=== PATIENT | male | born 1955 | race Caucasian/White ===

== ENCOUNTER 2020-04-26 08:36 | Day surgery (SDC) | payer OTHER ==
[2020-04-19 10:57] VITALS: BMI 27.8
[2020-04-26] MEDS ORDERED: Fentanyl 100 MCG/2 ML VIAL ONE ×2 (09:16→10:09)
[2020-04-26] MEDS ORDERED: Vancomycin 1.5 GRAM/300 ML BAG ONE (09:25)
[2020-04-26] MEDS ORDERED: Midazolam HCl 2 mg/2 ml Vial ONE (10:09)
[2020-04-26] MEDS ORDERED: Zolpidem Tartrate 5 MG TAB PO PRN (10:46)
[2020-04-26] MEDS ORDERED: Promethazine HCl 25 MG/ML VIAL IM PRN (10:46)
[2020-04-26] MEDS ORDERED: HYDROcodone/Acetaminophen 10/325 mg Tablet PO PRN ×2 (10:46)
[2020-04-26] MEDS ORDERED: Ropivacaine 0.2% 550 ML 550 ML NERVE BLCK SCH (10:46)
[2020-04-26] MEDS ORDERED: traMADol HCl 50 MG TAB PO PRN ×2 (10:46)
[2020-04-26] MEDS ORDERED: Ondansetron PF 4 MG/2 ML Vial IVP PRN (10:46)
[2020-04-26] MEDS ORDERED: Acetaminophen 325 MG TAB PO PRN (10:46)
[2020-04-26] MEDS ORDERED: Fentanyl 100 MCG/2 ML VIAL IV PRN (10:47)
[2020-04-26] MEDS ORDERED: Ropivacaine 0.5% HCl/PF (150 MG/30 ML VIAL) ONE (11:20)
[2020-04-26] MEDS ORDERED: Dexamethasone 20 MG/5 ML VIAL ONE (11:20)
[2020-04-26] MEDS ORDERED: Lidocaine 1% PF 5 ML VIAL ONE (11:20)
[2020-04-26] MEDS ORDERED: PROPOFOL 200 MG/20 ML VIAL ONE (11:20)
[2020-04-26] MEDS ORDERED: EPHEDRINE 25 MG/5 ML SYRINGE ONE (11:20)
[2020-04-26] MEDS ORDERED: Rocuronium Bromide 10 MG/ML (10ML VIAL) ONE (11:20)
[2020-04-26] MEDS ORDERED: Ondansetron PF 4 MG/2 ML Vial ONE (11:20)
[2020-04-26] MEDS ORDERED: Ropivacaine 0.2% HCl/PF (40 MG/20 ML VIAL) ONE (11:20)
--- NOTE | 2020-04-26 16:56 | OP ---
DATE OF PROCEDURE: 04/26/2020 PREOPERATIVE DIAGNOSES: 1. Right shoulder impingement with rotator cuff tear, status post previous arthroscopic cuff repair done approximately 15 years ago. 2. 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 PROCEDURES PERFORMED: 1. Right open shoulder subacromial decompression 2. Right open rotator cuff repair. 3. Right open biceps tenodesis. MARGIN TRIMMER: Lowell Ellsworth PA-C ESTIMATED BLOOD LOSS: Approximately 50 mL. COMPLICATIONS: None. ANESTHESIA: The patient did have a general anesthetic as well as a preoperative block. IMPLANTS: A 7 x 23 BioComposite Bio-Tenodesis screw from the biceps tendon. We used one triple-loaded titanium rotator cuff anchor and two 4.75 mm BioComposite SwiveLock for rotator cuff repair. INDICATIONS: This is a 64-year-old male, who is returning with complaints of pain and weakness in the shoulder. He had a previous arthroscopic repair years ago and at this time, new MRI showed him to have significant retear of the tendon as well as some degenerative labral tearing leading to biceps instability. DESCRIPTION OF PROCEDURE: After all appropriate consent forms were explained and signed, he was taken to the operative room and at this time was given general anesthetic. Once the level of anesthesia was appropriate, he was placed in a modified beach-chair position with all bony prominences well padded. The right shoulder and upper extremity were then prepped and draped in standard surgical fashion. Bony anatomical landmarks were drawn out and a single incision was made going from the AC joint, lateral and distal down the anterior one-third of the acromion. Bovie was used to coagulate any brisk venous bleeding. Multiple windows were then made underlying the subcutaneous tissue. At this time, anterior deltoid was taken off the anterior acromion full thickness for later repair extending from the lateral edge of the acromion approximately 2 to 2.5 cm. A Donnell was placed and a saw was used to perform an anterior-inferior acromioplasty. A rasp was used to smooth off the undersurface of this. At this time, the bursa was removed and gave us visualization of our underlying rotator cuff. The defect was noted as a soft spot in between the good posterior rotator cuff and the anterior cuff in between was interpose some soft collagenous type scar tissue and this was removed in its entirety sharply with a blade. We did remove our previous placed stitches at this time. We then took our finger and free it up any adhesions circumferentially around the rotator cuff, both on the superior and inferior surface. Gave us nice mobility rotator cuff and the posterior cuff came easily forward to close our hole. At this time, we then turned our attention to cleaning off the soft tissue and roughening up our insertion point for the rotator cuff. We then turned our attention to the biceps tenodesis. The biceps occipital groove was opened up. Biceps tendon was tagged and cut off the superior labral insertion using a pair of scissors. We then stitched the biceps; removed the intra-articular portion of it and placed a guidewire, reamed and placed our BioComposite 7 x 23 Bio-Tenodesis screw in standard fashion. Sutures were tied over top of this, so the screw could not back out. We then ran a #1 Vicryl suture to close our rotator interval split that we used to gain access through the biceps insertion. Once the biceps was done, we went back to rotator cuff tear. Multiple interrupted #1 Ethibond sutures were used to close the apex of our tear. We then placed a triple-loaded titanium anchor at the interval between the articular cartilage and the bone and these 3 sets sutures were used to place one limb through the anterior leaflet and one limb through the posterior leaflet. These were then sequentially tied closing the repair. We then took half the sutures posterior and half the sutures anterior for a double-row repair by punching and then placing 4.75 mm SwiveLock. This gave us an excellent repair. We thoroughly irrigated and dried. We then placed multiple interrupted stitches through the deltoid and took these through the bone for a deltoid repair onto the acromion. These were then sequentially tied with the arm held up in adduction to remove any tension and then allow the arm to sit at its side without any problem. We then overran our split using a large Vicryl followed by 2-0 Vicryl and surgical haydee on the skin. Bulky sterile dressing was applied. At this time , the patient had an arm sling applied to his right upper extremity prior to moving on to the recovery room bed and to recovery room. All counts were correct at the end of the case and Mr. Ni did receive preoperative IV antibiotics. Job ID: [id number] [facility]
== END 2020-04-26 14:18 | disposition home or self-care (01) ==
LOC: SDC 08:36
PROVIDERS: ATTEND Orthopaedic Surgery
PROC: 3E0T3BZ Introduction of Anesthetic Agent into Peripheral Nerves and Plexi, Percutaneous Approach (ICD-10-PCS; principal; 2020-04-26)
PROC: 0LS30ZZ Reposition Right Upper Arm Tendon, Open Approach (ICD-10-PCS; principal; 2020-04-26)
PROC: 0RHJ04Z Insertion of Internal Fixation Device into Right Shoulder Joint, Open Approach (ICD-10-PCS; principal; 2020-04-26)
PROC: 0LQ10ZZ Repair Right Shoulder Tendon, Open Approach (ICD-10-PCS; principal; 2020-04-26)
PROC: 0RNJ0ZZ Release Right Shoulder Joint, Open Approach (ICD-10-PCS; principal; 2020-04-26)
DX: M75.101 Unspecified rotator cuff tear or rupture of right shoulder, not specified as traumatic (principal); M25.811 Other specified joint disorders, right shoulder; S43.431A Superior glenoid labrum lesion of right shoulder, initial encounter; S46.111A Strain of muscle, fascia and tendon of long head of biceps, right arm, initial encounter; M19.011 Primary osteoarthritis, right shoulder; M17.11 Unilateral primary osteoarthritis, right knee; M21.161 Varus deformity, not elsewhere classified, right knee; G89.18 Other acute postprocedural pain; I10 Essential (primary) hypertension; E78.5 Hyperlipidemia, unspecified; G47.30 Sleep apnea, unspecified; E11.9 Type 2 diabetes mellitus without complications; M10.9 Gout, unspecified; Z79.82 Long term (current) use of aspirin; Z79.84 Long term (current) use of oral hypoglycemic drugs; Z79.899 Other long term (current) drug therapy; Z88.6 Allergy status to analgesic agent; Z98.890 Other specified postprocedural states
CPT/HCPCS: A4306; C1713; J0690; J1100; J2001; J2250; J2405; J2704; J2795; J3010; J3370